=== PATIENT | female | born 1975 | race Caucasian/White ===

== ENCOUNTER 2016-12-02 08:58 | Emergency (ER) | payer MEDICAID ==
[2016-12-02 09:18] VITALS: BP 124/83
--- NOTE | 2016-12-02 10:53 | Emergency Department Report ---
HPI - General Chief Complaint: Upper Respiratory Infection Time Seen by Provider: 12/02/16 10:13 - HPI HPI: Patient here complaining of cough chills and wheezing. Denies any nausea or vomiting. She said when going on for 7 days. Denies any fever. Denies any abdominal or chest pain. No [id number] medication taken. Reports that her throat and chest hurts when she coughs. Pain to throat and chest 7 out of 10 with coughing. ED Past Medical Hx - Past Medical History Previous Medical History?: Yes Hx Hypertension: Yes Hx Diabetes: Yes - Surgical History Past Surgical History?: Yes Additional Surgical History: Kidney Stones, Tubal Ligation - Family History Family history: diabetes - Social History Smoking Status: Never Smoker Substance Use Type: None - Medications Home Medications: Home Medications Medication Instructions Recorded Confirmed Last Taken Type Amoxicillin [Amoxicillin TAB] 875 mg PO BID #14 tablet 12/02/16 Unknown Rx Brompheniramine/Pseudoephed/Dm 10 ml PO BID #80 ml 12/02/16 Unknown Rx [Bromfed Dm Cough Syrup] Fluticasone [Flonase] 1 spray NS QDAY #1 bottle 12/02/16 Unknown Rx Loratadine [Claritin] 10 mg PO DAILY #10 tablet 12/02/16 Unknown Rx ED Review of Systems ROS: Stated complaint: COUGH/FEVER/WEEZING/CHEST PAIN Other details as noted in HPI Comment: All other systems reviewed and negative Constitutional: chills. denies: fever Eyes: denies: eye discharge ENT: throat pain, congestion. denies: ear pain Respiratory: cough, wheezing. denies: shortness of breath, SOB with exertion, SOB at rest, stridor Cardiovascular: chest pain. denies: palpitations, syncope Gastrointestinal: denies: abdominal pain, nausea, vomiting, diarrhea Musculoskeletal: denies: back pain Skin: denies: rash Neurological: denies: headache Physical Exam - Physical Exam Vital Signs: Vital Signs 12/02/16 09:13 Temperature 98.6 F Pulse Rate 99 H Respiratory 20 Rate Blood Pressure 124/83 O2 Sat by Pulse 100 Oximetry General: This is a 41-year-old female well-nourished well-developed in no acute distress. Physical Exam: Head: Normocephalic atraumatic Mouth: Moist, no pharyngeal exudate or erythema. Uvula is midline and oral airway is patent. No gingival enlargement or dental tenderness. No facial swelling. No peritonsillar abscesses. Neck: Supple, no C-spine tenderness, no tracheal deviation. Nontender to palpate. no adenopathy Ears: Bilateral TMs congested without erythema .bilateral EAC without any redness swelling or drainage Eyes: Bilateral pupils equal and reactive to light, bilateral EOM intact. Bilateral sclera and conjunctiva without injection. Normal accommodation Nose: Mucosa moist, positive congestion with erythema. Positive clear drainage. positive maxillary and frontal sinus tender to palpate. Lungs: Clear to auscultate bilaterally no rhonchi wheezes or rales. Normal work of breathing extremity; No CCE. +2 pulses. No neurovascular compromise Cardiovascular: S1-S2, regular rate rhythm. No murmurs. Skin: clean Dry and intact no rash no lesions Psych: Normal mood and behavior ED Course Vital Signs 12/02/16 09:13 Temperature 98.6 F Pulse Rate 99 H Respiratory 20 Rate Blood Pressure 124/83 O2 Sat by Pulse 100 Oximetry - Reevaluation(s) Reevaluation #1: 12/02/16 11:28 Patient had uneventful ED stay ED Medical Decision Making - Medical Decision Making ED course: I discussed the patient as she has sinus infection and will be treated with Flonase, Claritin , Bromfed and amoxicillin. She voiced understanding of discharge diagnosis and treatment plan. Condition discharged home with prescription for amoxicillin, Flonase and Claritin. Critical care attestation.: If time is entered above; I have spent that time in minutes in the direct care of this critically ill patient, excluding procedure time. ED Disposition Clinical Impression: Cough Acute sinusitis Qualifiers: Sinusitis location: unspecified location Recurrence: not specified as recurrent Qualified Code(s): J01.90 - Acute sinusitis, unspecified Disposition: DISCHARGED TO HOME OR SELFCARE Is pt being admited?: No Does the pt Need Aspirin: No Condition: Stable Instructions: Sinusitis (ED), Acute Cough (ED) Additional Instructions: Flush nostrils out with saline nasal wash. Prescriptions: Amoxicillin [Amoxicillin TAB] 875 mg PO BID #14 tablet Brompheniramine/Pseudoephed/Dm [Bromfed Dm Cough Syrup] 10 ml PO BID #80 ml Fluticasone [Flonase] 1 spray NS QDAY #1 bottle Loratadine [Claritin] 10 mg PO DAILY #10 tablet Referrals: TOÑA HENDRIX MD [Primary Care Provider] - 3-5 Days Forms: Work/School Release Form(ED)
== END 2016-12-02 11:42 | disposition home or self-care (01) ==
LOC: ED 08:58
DX: J01.90 Acute sinusitis, unspecified (principal); I10 Essential (primary) hypertension; E11.9 Type 2 diabetes mellitus without complications; Z98.51 Tubal ligation status
CPT/HCPCS: 99282